=== PATIENT | female | born 1980 | race Caucasian/White ===

== ENCOUNTER 2024-02-05 00:44 | Emergency (ER) | payer OTHER ==
[~2024-02-05] VITALS: Ht 147.3 cm; Wt 52.2 kg
[2024-02-05 01:30] LABS: BASOPHILS # (AUTO) 0.1 K/UL (0.0-0.2); BASOPHILS % (AUTO) 0.8 % (0.0-2.0); EOSINOPHILS # (AUTO) 0.2 K/uL (0.0-0.7); EOSINOPHILS % (AUTO) 2.1 % (0.0-7.0); HEMATOCRIT 40.8 % (31.2-41.9); LYMPHOCYTES # (AUTO) 2.9 K/uL (0.8-4.8); LYMPHOCYTES % (AUTO) 30.5 % (20.5-51.5); MEAN CORPUSCULAR HEMOGLOBIN 29.9 uug (24.7-32.8); MEAN CORPUSCULAR HGB CONC 32 g/dL (32.3-35.6); MEAN CORPUSCULAR VOLUME 94.1 fL (75.5-95.3); MONOCYTES # (AUTO) 0.8 K/uL (0.1-1.30); MONOCYTES % (AUTO) 8.1 % (0.0-11.0); NEUTROPHILS # (AUTO) 5.6 K/uL (1.8-8.9); NEUTROPHILS % (AUTO) 58.5 % (38.5-71.5); PLATELET COUNT (AUTO) 367 K/uL (179-408); RED BLOOD CELL COUNT(AUTO) 4.34 MIL/uL (3.63-4.92); RED CELL DISTRIBUTION WIDTH 13.2 % (12.3-17.7); WHITE BLOOD COUNT (AUTO) 9.6 K/uL (3.8-11.8)
[2024-02-05 01:31] LABS: CALCIUM 8.9 mg/dL (8.5-10.1); CREATININE 0.8 mg/dL (0.6-1.3); POTASSIUM 3.4 mmol/L (3.5-5.1)
[2024-02-05 01:36] LABS: ALBUMIN 3.7 g/dL (3.4-5.0); BILIRUBIN,TOTAL 0.3 mg/dL (0.2-1.0); TOTAL PROTEIN, SERUM 6.8 g/dL (6.4-8.2)
[2024-02-05] MEDS ORDERED: FAMOTIDINE. 20 MG/2 ML VIAL IV ONE (01:40)
[2024-02-05] MEDS ORDERED: ONDANSETRON 4 MG/2 ML VIAL ONE (01:40)
[2024-02-05] MEDS ORDERED: methylPREDNISolone SOD SUCC 125 MG/2 ML VIAL ONE (01:40)
[2024-02-05] MEDS: FAMOTIDINE. 20 MG/2 ML VIAL IV ONE (01:53)
[2024-02-05] MEDS: methylPREDNISolone SOD SUCC 125 MG/2 ML VIAL IV ONE (01:54)
[2024-02-05] MEDS: ONDANSETRON 4 MG/2 ML VIAL IV ONE (01:54)
[2024-02-05] MEDS: IV NS 1000 ML 1,000 ML IV ONE (02:00)
[2024-02-05] MEDS ORDERED: PRED20TA PO (03:31)
[2024-02-05] MEDS ORDERED: FAMO-132 PO (03:31)
[2024-02-05] MEDS: POTASSIUM CHLORIDE 20 MEQ TAB.PRT.SR PO ONE (03:47)
[2024-02-05 03:58] VITALS: O2SAT 99
== END 2024-02-05 04:00 | disposition home or self-care (01) ==
LOC: ER 00:50
DX: T78.3XXA Angioneurotic edema, initial encounter (principal); Z77.120 Contact with and (suspected) exposure to mold (toxic); R07.89 Other chest pain; E87.6 Hypokalemia; G90.A Postural orthostatic tachycardia syndrome [POTS]; Z79.52 Long term (current) use of systemic steroids; Z88.2 Allergy status to sulfonamides; Z88.1 Allergy status to other antibiotic agents; X58.XXXA Exposure to other specified factors, initial encounter
CPT/HCPCS: 99284; 96374; 96375; 96361; 80053; 85025; 84484; 36415; 93005 ×2; J3490; J2919; J2405; J7040; A4606; A4663